=== PATIENT | male | born 1990 | race Two or more races ===

== ENCOUNTER 2024-11-29 21:15 | Emergency (ER) | payer OTHER ==
[~2024-11-29] VITALS: Ht 188 cm; Wt 84.1 kg
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
[2024-11-29 22:47] LABS: Basophils # (auto) 0.1 10 ^3/uL (0-0.2); Basophils % (auto) 0.6 % (0.0-2.0); Eosinophils # (auto) 0.1 10 ^3/uL (0-0.8); Eosinophils % (auto) 0.8 % (0.0-7.0); Hematocrit 50.8 % (41.0-53.0); Hemoglobin 16.9 g/dL (13.5-17.5); Mean Corpuscular Hemoglobin 29.7 pg (28.0-32.0); Mean Corpuscular Hgb Conc. 33.3 g/dL (32.0-36.0); Mean Corpuscular Volume 89.3 fL (80.0-100.0); Monocytes # (auto) 0.6 10 ^3/uL (0-1.3); Monocytes % (auto) 4.9 % (0.0-12.0); Neutrophils # (auto) 9.2 10 ^3/uL (1.6-8.6); Neutrophils % (auto) 76.7 % (37.0-80.0); Nucleated Red Blood Cells % 0.9 %; Platelet Count (auto) 290 10^3/uL (140-450); Red Blood Cells 5.69 10^6/uL (4.5-5.90); Red Cell Distribution Width 13.1 % (11.8-14.3); White Blood Cell 11.9 10^3/uL (4.4-10.8)
[2024-11-29 22:54] LABS: Chloride 103 mmol/L (98-107); Potassium 3.8 mmol/L (3.5-5.1); Sodium 140 mmol/L (136-145)
[2024-11-29 22:55] LABS: Anion Gap 9 (5-15); Carbon Dioxide 28 mmol/L (20-31)
[2024-11-29 22:56] LABS: Calcium 9.9 mg/dL (8.7-10.4)
--- NOTE | 2024-11-29 22:57 | DVH ---
CT HEAD WITHOUT CONTRAST INDICATION: HEAD INJURY COMPARISON: None TECHNIQUE: CT of the head without intravenous contrast. RADIATION DOSE: CTDIvol: mGy, DLP: mGy*cm FINDINGS: There is no evidence of intracranial hemorrhage, infarct, extra-axial collection, mass effect, midli ne shift, herniation or hydrocephalus. The ventricles, sulci and cisterns are normal. The day-whit e differentiation is normal. Mild fluid/mucosal thickening in bilateral maxillary sinuses greater on the left side. Otherwise unremarkable. Mastoid air cells and middle ear cavities are clear. Soft tis sues and osseous structures are unremarkable. IMPRESSION: No hemorrhage or other acute intracranial abnormality.
[2024-11-29 23:00] LABS: Blood Urea Nitrogen 13 mg/dL (9-23)
[2024-11-29 23:01] LABS: Blood Alcohol 34.4 mg/dL (<10)
[2024-11-29 23:03] LABS: Glucose 117 mg/dL (74-106)
--- NOTE | 2024-11-29 23:19 | DVH ---
HISTORY: FACIAL INJURY TECHNIQUE: Nonenhanced axial images through the facial bones with coronal and sagittal MPR. Radiation Dose Information: CT Dose: CTDI volume is mGy. Dose-length product is mGy*cm COMPARISON: None FINDINGS: Soft tissues: No abnormality demonstrated Mandible: Unremarkable Maxilla: Unremarkable Zygomatic arches: Unremarkable Nasal bone: Unremarkable Orbits: Unremarkable Paranasal sinuses/Mastoid air cells/Middle ear cavities: Mild fluid/mucosal thickening in maxillary sinuses greater on the left side. Otherwise unremarkable. Mastoid air cells and middle ear cavities a re clear. IMPRESSION: No facial fracture. Radiation optimization: All CT scans at this facility use at least one of these dose optimization brooke hniques: automated exposure control mA and/or kV adjustment per patient size (includes targeted exam s where dose is matched to clinical indication) or iterative reconstruction.
--- NOTE | 2024-11-29 23:27 | DVH ---
EXAM: XY CHEST XRAY 1 VIEW CLINICAL HISTORY: SYNCOPE TECHNIQUE: Single AP view of the chest WID: COMPARISON: None FINDINGS: Lines and tubes: None Chest: The heart size and pulmonary vasculature is within normal limits. Tiny reticular nodular opacities project over the mid to lower lungs. No pleural effusion or pneumoth orax. The osseous structures are grossly intact. IMPRESSION: Tiny reticular nodular opacities project over the mid to lower lungs which could be atypical infectio n.
[2024-11-29 23:36] LABS: Urine Bacteria None Seen /hpf (None Seen)
[2024-11-30 00:04] LABS: Urine Blood Negative /uL (Negative); Urine Clarity Clear (Clear); Urine Color Yellow (Yellow); Urine Hyaline Cast MANY /lpf (0 - 2); Urine Mucus FEW (None Seen); Urine Protein, UAD TRACE (Negative); Urine Squamous Epithelial Cell FEW /hpf (<5); Urine Urobilinogen 2 mg/dL (Negative); Urine WBC 5 /HPF (0-3); Urine pH 5.5 (5.0-9.0)
[2024-11-30 00:12] LABS: Amphetamine Screen, Urine Neg (NEGATIVE); Barbiturate Scree,Urine Neg (NEGATIVE); Benzodiazephine Screen, Urine Neg (NEGATIVE); Cannabinoid Screen, Urine Pos (NEGATIVE); Cocaine Screen, Urine Neg (NEGATIVE); Opiate Scree,Urine Neg (NEGATIVE); Phencyclidine Screen, Urine Neg (NEGATIVE)
[2024-11-30 00:24] LABS: Lactic Acid w/Reflex 2.1 mmol/L (0.4-2.0)
[2024-11-30 00:46] LABS: INR 1.03 (0.9-1.15); Partial Thromboplastin Time 23.7 SEC (24.5-34.5); Prothrombin Time 10.9 sec (9.3-11.8)
[2024-11-30] MEDS: cefTRIAXone 1GM/50ML D5W 50 ML IV ONE (01:25)
[2024-11-30] MEDS: SODIUM CHLORIDE 0.9% 1,000 ML IV ONE ×2 (01:25→03:34)
[2024-11-30] MEDS: AZITHROMYCIN 500MG/ 250ML 250 ML IV ONE (01:25)
[2024-11-30 04:31] VITALS: BP 123/88; PULSE 71; RESP 16; TEMP 98.3; O2SAT 96
--- NOTE | 2024-12-03 14:25 | ECG ---
[facility] Test Date: 2024-11-29 Test Time: 22:22:03 Pat Name: CHELA ALONSO Department: ED Room: Gender: M [employer]: : 1990 Requested By: NAYA KRAUS Order Number: [id number] Reading MD: Measurements Intervals [place] Rate: 80 P: 96 TN: 139 QRS: 85 QRSD: 96 T: -1 QT: 355 QTc: 410 Interpretive Statements Sinus rhythm Borderline T wave abnormalities Borderline ST elevation, anterolateral leads Please click the below link to view image of tracing.
== END 2024-11-29 23:59 | disposition left against medical advice (07) ==
LOC: ER 21:15
DX: S02.5XXA Fracture of tooth (traumatic), initial encounter for closed fracture (principal); S01.81XA Laceration without foreign body of other part of head, initial encounter; J18.9 Pneumonia, unspecified organism; J45.909 Unspecified asthma, uncomplicated; Z79.899 Other long term (current) drug therapy; R06.02 Shortness of breath; F19.20 Other psychoactive substance dependence, uncomplicated; W18.39XA Other fall on same level, initial encounter; Y93.89 Activity, other specified; Y92.89 Other specified places as the place of occurrence of the external cause; Y99.8 Other external cause status
CPT/HCPCS: 12013; 36415; 70450; 70486; 71045; 80048; 80307; 80320; 81001; 83605; 84484; 85025; 85379; 85610; 85730; 87040; 93005; 96365; 96368